=== PATIENT | female | born 1960 | race African-American/Black ===

== ENCOUNTER 2017-12-04 10:45 | Emergency (ER) | payer OTHER ==
[~2017-12-04] VITALS: Ht 157.5 cm; Wt 67.3 kg
[2017-12-04 11:14] VITALS: BP 181/100
== END 2017-12-04 12:13 | disposition home or self-care (01) ==
LOC: ER 10:47
DX: S80.212A Abrasion, left knee, initial encounter (principal); Z90.710 Acquired absence of both cervix and uterus; W18.30XA Fall on same level, unspecified, initial encounter; Y93.89 Activity, other specified; Y92.89 Other specified places as the place of occurrence of the external cause; Y99.8 Other external cause status
CPT/HCPCS: 73564; 99284

== ENCOUNTER 2017-12-12 10:46 | Emergency (ER) | payer OTHER ==
[~2017-12-12] VITALS: Ht 165.1 cm; Wt 71.6 kg
[2017-12-12 11:04] VITALS: BP 148/71
== END 2017-12-12 13:00 | disposition home or self-care (01) ==
LOC: ER 10:47
DX: R60.0 Localized edema (principal); M79.89 Other specified soft tissue disorders; Z90.49 Acquired absence of other specified parts of digestive tract; Z98.890 Other specified postprocedural states
CPT/HCPCS: 99281